=== PATIENT | female | born 1975 | race Two or more races ===

== ENCOUNTER 2024-07-12 07:36 | Emergency (ER) | payer MEDICAID ==
[~2024-07-12] VITALS: Ht 157.5 cm; Wt 80.9 kg
[2024-07-12 07:41] VITALS: TEMP 98.4
[2024-07-12] MEDS: SODIUM CHLORIDE 0.9% 1,000 ML IV ONE (08:50)
[2024-07-12] MEDS: HYDROCODONE/ACETAMINOPHEN 5-325 MG TABLET PO ONE (08:50)
[2024-07-12] MEDS: ONDANSETRON HCL 4 MG/2 ML VIAL IVP ONE (08:51)
[2024-07-12 09:19] LABS: BASOPHILS % (AUTO) 0.8 % (0.0-2.0); EOSINOPHILS % (AUTO) 2.4 % (1.0-6.0); HEMATOCRIT 41.3 % (36-46); HEMOGLOBIN 13.4 g/dL (12.0-16.0); LYMPHOCYTES # (AUTO) 3.4 K/uL (1.0-4.8); LYMPHOCYTES % (AUTO) 22.3 % (22.0-44.0); MEAN CORPUSCULAR HEMOGLOBIN 29.7 pg (26.0-34.0); MEAN CORPUSCULAR HGB CONC 32.5 G/dL (31.0-37.0); MEAN CORPUSCULAR VOLUME 91 fL (80-100); MONOCYTES # (AUTO) 0.8 K/uL (0.1-1.0); NEUTROPHILS # (AUTO) 10.5 K/uL (1.8-7.7); NEUTROPHILS % (AUTO) 69.5 % (40.0-70.0); PLATELET COUNT (AUTO) 371 K/uL (150-450); RED BLOOD CELL COUNT(AUTO) 4.52 MIL/uL (4.00-5.20); RED CELL DISTRIBUTION WIDTH 14.5 % (11.5-14.5); WHITE BLOOD COUNT (AUTO) 15.1 K/uL (4.5-11.0)
[2024-07-12 09:27] LABS: ANION GAP 6 mmol/L (8-16); CALCIUM, TOTAL 8.6 mg/dL (8.8-10.5); CARBON DIOXIDE 28 mmol/L (22-29); CHLORIDE 104 mmol/L (98-107); CREATININE 0.76 mg/dL (0.60-1.30); GLOMERULAR FILTR. RATE CALC > 60 mL/min (>60); GLUCOSE,RANDOM 101 mg/dL (70-110); POTASSIUM 4.4 mmol/L (3.5-5.1); SODIUM SERUM 138 mmol/L (136-145); UREA NITROGEN, BLOOD 10 mg/dL (7-18)
[2024-07-12 09:33] LABS: ALANINE AMINOTRANSFERASE 41 U/L (12-78); ALBUMIN 3.5 g/dL (3.4-5.0); ALKALINE PHOSPHATASE 74 U/L (46-116); ASPARTATE AMINOTRANSFERASE 18 U/L (15-37); BILIRUBIN,TOTAL 0.3 mg/dL (0.1-1.0); LIPASE 36 U/L (16-77); TOTAL PROTEIN, SERUM 7.7 g/dL (6.4-8.2)
[2024-07-12 09:45] LABS: APPEARANCE,URINE HAZY (CLEAR); BILIRUBIN,URINE NEGATIVE (NEGATIVE); COLOR,URINE LIGHT YELLOW (YELLOW); GLUCOSE, URINE (UA) NEGATIVE (NEGATIVE); KETONES,URINE NEGATIVE (NEGATIVE); LEUKOCYTE ESTERASE ,URINE LARGE (NEGATIVE); NITRATE,URINE NEGATIVE (NEGATIVE); OCCULT BLOOD,URINE SMALL (NEGATIVE); PH,URINE 6.5 (5.0-8.0); PROTEIN,URINE 30-70 mg/dL (NEGATIVE); SPECIFIC GRAVITIY, URINE 1.012 (1.003-1.030); UROBILINOGEN,URINE <=1.0 mg/dL (<=1.0)
[2024-07-12 10:08] LABS: BACTERIA,URINE Moderate /HPF (None Seen); SQUAMOUS EPITHELIAL CELL,UR Few /LPF (None Seen); WBC,URINE 51-100 /HPF (0-5)
[2024-07-12] MEDS: CefTRIAXone 1 GM/DEXTROSE 50 ML IV ONE (10:37)
[2024-07-12] MEDS ORDERED: CEPH-558 PO (10:46)
[2024-07-12] MEDS ORDERED: IBUP-1554 PO (10:46)
[2024-07-12] MEDS ORDERED: HYDR-4072 PO (10:46)
[2024-07-12] MEDS ORDERED: PHEN-674 PO (10:46)
[2024-07-12 11:12] VITALS: BP 125/70; PULSE 75; RESP 18; O2SAT 99
== END 2024-07-12 11:14 | disposition home or self-care (01) ==
LOC: EMS 07:38
DX: N12 Tubulo-interstitial nephritis, not specified as acute or chronic (principal)
CPT/HCPCS: 99284; 96365; 96361; 96375; 80048; 80076; 81001; 83690; 84703; 85025; 87077; 87086; 87186; 36415; J0696; J2405; J7030